=== PATIENT | male | born 1965 | race Caucasian/White ===

== ENCOUNTER 2016-07-08 04:26 | Emergency (ER) | payer SELFPAY ==
[2016-07-08] MEDS ORDERED: Sodium Chloride 0.9% 1,000 ML IV ONE (04:45)
--- NOTE | 2016-07-08 04:45 | C.PDOC ---
History Of Present Illness 51 y/o male presents to ED with complaint of sudden onset of right flank pain radiating to his groin. Patient also reports some associated nausea. Denies fever, chills, or vomiting. Time Seen by Provider: 07/08/16 04:45 Chief Complaint (Nursing): Abdominal Pain History Per: Patient History/Exam Limitations: no limitations Onset/Duration Of Symptoms: Sudden Onset Current Symptoms Are (Timing): Still Present Severity: Mild Pain Scale Rating Of: 4 Location Of Pain/Discomfort: Other (right flank) Radiation Of Pain To:: Other (groin) Quality Of Discomfort: "Pain" Associated Symptoms: Nausea. denies: Fever, Chills, Vomiting, Diarrhea, Urinary Symptoms Exacerbating Factors: None Alleviating Factors: None Recent travel outside of the [place]: No Past Medical History Reviewed: Historical Data, Nursing Documentation, Vital Signs Vital Signs: Last Vital Signs Temp 98.2 F 07/08/16 04:35 Pulse 78 07/08/16 06:17 Resp 20 07/08/16 06:17 BP 120/66 07/08/16 06:17 Pulse Ox 100 07/08/16 06:17 - Medical History PMH: Hypercholesterolemia Family History: States: No Known Family Hx - Social History Hx Alcohol Use: No Hx Substance Use: No - Immunization History Hx Tetanus Toxoid Vaccination: No Hx Influenza Vaccination: No Hx Pneumococcal Vaccination: No Review Of Systems Constitutional: Negative for: Fever, Chills Cardiovascular: Negative for: Chest Pain Respiratory: Negative for: Cough Gastrointestinal: Positive for: Nausea, Other (right flank pain ). Negative for : Vomiting, Diarrhea Genitourinary: Positive for: Frequency. Negative for: Hematuria Musculoskeletal: Positive for: Back Pain Skin: Negative for: Rash, Lesions, Jaundice Neurological: Negative for: Headache, Dizziness Psych: Negative for: Anxiety Physical Exam - Physical Exam Appears: Non-toxic, No Acute Distress Skin: Warm, Dry Head: Normacephalic Eye(s): bilateral: Normal Inspection Oral Mucosa: Moist Chest: Symmetrical Cardiovascular: Rhythm Regular Respiratory: No Rales, No Rhonchi, No Wheezing Gastrointestinal/Abdominal: Soft, Tenderness (R FLANK), No Guarding, No Rebound Back: CVA Tenderness (right) Extremity: Normal ROM, Capillary Refill (< 2 sec. ) Extremity: Bilateral: Atraumatic Neurological/Psych: Oriented x3, Normal Speech, Normal Cognition Gait: Steady ED Course And Treatment - Laboratory Results Result Diagrams: 07/08/16 05:24 07/08/16 05:24 O2 Sat by Pulse Oximetry: 98 (RA) Pulse Ox Interpretation: Normal Progress Note: Pepcid, Toradol, Zofran, IVFs, labs ordered. Disposition Counseled Patient/Family Regarding: Studies Performed, Diagnosis - Disposition Disposition Time: 04:45 Condition: UNKNOWN - Clinical Impression Clinical Impression: Renal colic on right side - Scribe Statement The provider has reviewed the documentation as recorded by the Bartolo Shelley Provider Scribe Attestation: All medical record entries made by the Balae were at my direction and personally dictated by me. I have reviewed the chart and agree that the record accurately reflects my personal performance of the history, physical exam, medical decision making, and the department course for this patient. I have also personally directed, reviewed, and agree with the discharge instructions and disposition. Physician Patient Turnover Patient Signed Over To: Luis Brothers Handoff Comments: pending ct and disposition
[2016-07-08 05:31] LABS: BASO # 0.1 K/uL (0.0-0.2); BASO % 0.6 % (0.0-2.0); EOS # 0.3 K/uL (0.0-0.7); HEMATOCRIT 45.7 % (35.0-51.0); LYMPH # 3.6 K/uL (1.0-4.3); LYMPH % 37.1 % (20.0-40.0); MEAN CELL VOLUME 82.6 fL (80.0-94.0); MEAN CORPUSCULAR HEMOGLOBIN 28.2 pg (27.0-31.0); MEAN CORPUSCULAR HGB CONC 34.1 g/dL (33.0-37.0); MEAN PLATELET VOLUME 9.7 fL (7.2-11.7); MONO # 0.6 K/uL (0.0-0.8); MONO % 5.8 % (0.0-10.0); NRBC % 0.3 % (0.0-2.0); WHITE BLOOD COUNT 9.7 K/uL (4.8-10.8)
[2016-07-08 05:32] LABS: RBC URINE 258 /hpf (0-3); URINE BACTERIA RARE (<OCC); URINE BILIRUBIN NEGATIVE (NEGATIVE); URINE BLOOD 3+ (NEGATIVE); URINE COLOR Yellow (YELLOW); URINE GLUCOSE (UA) 1+ mg/dL (Normal); URINE KETONE NEGATIVE (NEGATIVE); URINE LEUKOCYTE ESTERASE NEG Leu/uL (Negative); URINE PROTEIN 1+ mg/dL (NEGATIVE); URINE UROBILINOGEN NORMAL mg/dL (0.2-1.0); WBC URINE 3 /hpf (0-5)
[2016-07-08 05:41] LABS: CHLORIDE 100 mmol/L (98-107)
[2016-07-08 05:42] LABS: POTASSIUM 3.9 mmol/L (3.6-5.2); SODIUM 137 mmol/L (132-148)
[2016-07-08 05:44] LABS: ALB/GLOB RATIO 1.4 (1.0-2.1); ALKALINE PHOSPHATASE 60 U/L (38-126); AST/SGOT 25 U/L (17-59); BILIRUBIN,TOTAL 0.2 mg/dL (0.2-1.3); BLOOD UREA NITROGEN 15 mg/dL (9-20); CARBON DIOXIDE 26 mmol/L (22-30); GFR AFRICAN-AMERICAN > 60; TOTAL PROTEIN 7.9 g/dL (6.3-8.3)
[2016-07-08 05:45] LABS: ALT/SGPT 36 U/L (21-72); CALCIUM 10.7 mg/dl (8.6-10.4); GLUCOSE,RANDOM 140 mg/dL (75-110)
[2016-07-08 06:17] VITALS: PULSE 78
[2016-07-08 06:45] VITALS: O2SAT 98
--- NOTE | 2016-07-08 08:55 | CT ---
PROCEDURE: CT Abdomen and Pelvis without intravenous contrast HISTORY: right flank pain, hematuria COMPARISON: None. TECHNIQUE: Without contrast.. Contrast Dose: 0 Radiation dose: Total exam DLP = 1131.09 mGy-cm. This CT exam was performed using one or more of the following dose reduction techniques: Automated exposure control, adjustment of the mA and/or kV according to patient size, and/or use of iterative reconstruction technique. FINDINGS: LOWER THORAX: Unremarkable. LIVER: Mild hepatomegaly. Mild diffusely diminished attenuation of the liver consistent with fatty infiltration. Smooth contour. No mass. No biliary ductal dilatation. GALLBLADDER AND BILE DUCTS: Probable few tiny dependent calculi. No mural thickening. No pericholecystic fluid. PANCREAS: Unremarkable. No gross lesion or ductal dilatation. SPLEEN: Unremarkable. ADRENALS: Unremarkable. No mass. KIDNEYS AND URETERS: Mild right hydronephrosis and proximal hydroureter. 3 mm calculus in proximal right ureter, possibly obstructing or partially obstructing. There is mild periureteric stranding about the ureter just proximal to this calculus. No other ureteral calculus. No left hydronephrosis. No renal mass. VASCULATURE: Unremarkable. No aortic aneurysm. BOWEL: Sigmoid diverticulosis without evidence of diverticulitis. No other abnormal bowel loops are identified. APPENDIX: Unremarkable. Normal appendix. PERITONEUM: Unremarkable. No free fluid. No free air. LYMPH NODES: Unremarkable. No enlarged lymph nodes. BLADDER: Unremarkable. REPRODUCTIVE: Normal prostate BONES: No acute fracture. OTHER FINDINGS: None. IMPRESSION: Proximal right ureteral 3 mm calculus with mild right hydroureteronephrosis. No perinephric fluid. Probable cholelithiasis without evidence of cholecystitis. Mild hepatomegaly with fatty infiltration of the liver. Sigmoid diverticulosis without evidence of diverticulitis.
[2016-07-08 09:21] VITALS: BP 147/88; RESP 16; TEMP 97.8
== END 2016-07-08 09:22 | disposition home or self-care (01) ==
LOC: C.ER 04:26
DX: N13.2 Hydronephrosis with renal and ureteral calculous obstruction (principal)
CPT/HCPCS: 74176; 80053; 81001; 83690; 85025; 85610; 85730; 96361; 96374; 96375; 99285; J1885; J2405; J7040

== ENCOUNTER 2016-07-09 06:42 | Emergency (ER) | payer SELFPAY ==
[2016-07-09 06:49] VITALS: PULSE 78
[2016-07-09] MEDS ORDERED: Sodium Chloride 0.9% 1,000 ML IV ONE (07:42)
[2016-07-09] MEDS ORDERED: Sodium Chloride 0.9% 1,000 ML ONE (07:42)
--- NOTE | 2016-07-09 08:22 | C.PDOC ---
History Of Present Illness 51 y/o male presents to the ED with complains of right flank pain. Pt was seen in ED 1 day ago for same, diagnosed right kidney stone and discharged home with Flomax, percocet and ibuprofen. Pt states he took ibuprofen once, has been taking Flomax and now can't find pain medications. Denies nausea, vomiting, diarrhea, fever, difficulty urinating or any other complaints. Time Seen by Provider: 07/09/16 07:25 Chief Complaint (Nursing): Back Pain History Per: Patient History/Exam Limitations: no limitations Onset/Duration Of Symptoms: Days Current Symptoms Are (Timing): Still Present Quality Of Discomfort: "Pain" Severity: Moderate Associated Symptoms: None Recent travel outside of the [place]: No Past Medical History Reviewed: Historical Data, Nursing Documentation, Vital Signs Vital Signs: Last Vital Signs Temp 97.7 F 07/09/16 06:43 Pulse 78 07/09/16 06:43 Resp 18 07/09/16 06:43 BP 131/85 07/09/16 07:30 Pulse Ox 97 07/09/16 08:23 - Medical History PMH: Hypercholesterolemia Family History: States: Unknown Family Hx - Social History Hx Alcohol Use: No Hx Substance Use: No - Immunization History Hx Tetanus Toxoid Vaccination: No Hx Influenza Vaccination: No Hx Pneumococcal Vaccination: No Review Of Systems Except As Marked, All Systems Reviewed And Found Negative. Constitutional: Negative for: Fever, Chills Gastrointestinal: Negative for: Nausea, Vomiting, Abdominal Pain, Diarrhea Genitourinary: Positive for: Other (no difficulty urinating). Negative for: Dysuria Musculoskeletal: Positive for: Back Pain (right flank) Physical Exam - Physical Exam Appears: Non-toxic, No Acute Distress Skin: Warm, Dry, No Rash Head: Atraumatic, Normacephalic Neck: Normal, Normal ROM, Supple Chest: Symmetrical Cardiovascular: Rhythm Regular, No Murmur Respiratory: Normal Breath Sounds, No Rales, No Rhonchi, No Wheezing Gastrointestinal/Abdominal: Normal Exam, Soft, No Tenderness Back: CVA Tenderness (mild right) Extremity: Bilateral: Atraumatic Neurological/Psych: Oriented x3 ED Course And Treatment O2 Sat by Pulse Oximetry: 97 (room air) Pulse Ox Interpretation: Normal Progress Note: patient feeling much better after toradol, pain resolved. will d/ c with and PMD f/u. Reevaluation Time: :18 Reassessment Condition: Improved Medical Decision Making Medical Decision Making: Plan: IV fluids, toradol IV. Discharged home with NSAIDs and instructed to follow up with . Disposition Counseled Patient/Family Regarding: Diagnosis, Need For Followup - Disposition Referrals: [facility] [Outside] [facility] [Outside] Chris Salvador Jr., MD [Staff Provider] - Disposition: HOME/ ROUTINE Disposition Time: 08:19 Condition: IMPROVED Additional Instructions: Please take ibuprofen 600 mg (3 over the counter tablets of 200 mg each) with food, every 6 hours for pain, as well as Flomax that was prescribed yesterday. . Please strain all urine and keep stone when it passes to bring to urologist. Drink increased fluids. Follow up with Urologist and with medical clinic- have your blood sugar checked; it was 140 in the ER the other day. Return to ER for worsening pain, fever, difficulty urinating or any other concerns. Instructions: Renal Colic (ED) Forms: General Discharge Instructions - Clinical Impression Clinical Impression: Renal colic on right side - PA / SAUSAGE WRAPPER / Resident Statement MD/DO has reviewed & agrees with the documentation as recorded. - Scribe Statement The provider has reviewed the documentation as recorded by the Bartolo Graham All medical record entries made by the Bartolo were at my direction and personally dictated by me. I have reviewed the chart and agree that the record accurately reflects my personal performance of the history, physical exam, medical decision making, and the department course for this patient. I have also personally directed, reviewed, and agree with the discharge instructions and disposition.
[2016-07-09 08:42] VITALS: BP 134/83; RESP 16; TEMP 97.8
[2016-07-09 18:16] VITALS: O2SAT 97
== END 2016-07-09 08:42 | disposition home or self-care (01) ==
LOC: C.ER 06:42
DX: N23 Unspecified renal colic (principal)
CPT/HCPCS: 96374; 99284; J1885; J7040